=== PATIENT | female | born 1935 | race Two or more races ===

== ENCOUNTER 2021-05-03 17:39 | Emergency (ER) | payer MEDICARE ==
[~2021-05-03] VITALS: Ht 152.4 cm; Wt 68.2 kg
[2021-05-03 18:19] LABS: GLUCOMETER DEV NAME(LOC) ERT.5; GLUCOSE,POINT OF CARE 230 MG/DL (70-110)
[2021-05-03 18:57] LABS: BASOPHILS % (AUTO) 0.3 % (0.0-2.0); EOSINOPHILS % (AUTO) 0.5 % (1.0-6.0); HEMATOCRIT 33.9 % (36-46); HEMOGLOBIN 11.2 g/dL (12.0-16.0); LYMPHOCYTES # (AUTO) 0.9 K/uL (1.0-4.8); LYMPHOCYTES % (AUTO) 10.5 % (22.0-44.0); MEAN CORPUSCULAR HEMOGLOBIN 30.4 pg (26.0-34.0); MEAN CORPUSCULAR HGB CONC 33.1 G/dL (31.0-37.0); MEAN CORPUSCULAR VOLUME 92 fL (80-100); MONOCYTES # (AUTO) 0.5 K/uL (0.1-1.0); MONOCYTES % (AUTO) 5.5 % (2.0-9.0); NEUTROPHILS % (AUTO) 83.2 % (40.0-70.0); PLATELET COUNT (AUTO) 304 K/uL (150-450); RED CELL DISTRIBUTION WIDTH 12.9 % (11.5-14.5)
[2021-05-03 19:11] LABS: CALCIUM, TOTAL 10.2 mg/dL (8.8-10.5); CREATININE 1.73 mg/dL (0.60-1.30); POTASSIUM 4.5 mmol/L (3.5-5.1)
[2021-05-03 19:12] LABS: APPEARANCE,URINE CLOUDY (CLEAR); BILIRUBIN,URINE NEGATIVE (NEGATIVE); GLUCOSE, URINE (UA) NEGATIVE (NEGATIVE); KETONES,URINE NEGATIVE (NEGATIVE); LEUKOCYTE ESTERASE ,URINE MODERATE (NEGATIVE); NITRATE,URINE NEGATIVE (NEGATIVE); OCCULT BLOOD,URINE TRACE (NEGATIVE); PROTEIN,URINE POS 1+ (NEGATIVE); UROBILINOGEN,URINE 0.2 mg/dL (<=1.0)
[2021-05-03] MEDS ORDERED: SODIUM CHLORIDE 0.9% 1,000 ML IV ONE (19:15)
[2021-05-03 19:21] LABS: RBC,URINE 0-2 /HPF (0-2)
[2021-05-03 19:22] LABS: BACTERIA,URINE Few /HPF (None Seen); SQUAMOUS EPITHELIAL CELL,UR Rare /LPF (None Seen)
[2021-05-03 20:10] LABS: COVID AG,FIA SOURCE NASOPHARYNGEAL
[2021-05-03] MEDS ORDERED: CefTRIAXone 1 GM/DEXTROSE 50 ML IV ONE (20:30)
[2021-05-03 23:07] VITALS: BP 176/76
== END 2021-05-03 23:37 | disposition short-term general hospital (02) ==
LOC: EMS 17:43
DX: N17.9 Acute kidney failure, unspecified (principal); N39.0 Urinary tract infection, site not specified; E86.0 Dehydration; E05.00 Thyrotoxicosis with diffuse goiter without thyrotoxic crisis or storm; E78.00 Pure hypercholesterolemia, unspecified; E11.9 Type 2 diabetes mellitus without complications; Z20.822 Contact with and (suspected) exposure to COVID-19
CPT/HCPCS: 36415; 71045; 80048; 81001; 82962; 85025; 87086; 87426; 93005; 96365; 99285; J0696

== ENCOUNTER 2022-12-09 18:18 | Emergency (ER) | payer MEDICARE ==
[~2022-12-09] VITALS: Ht 152.4 cm; Wt 43.2 kg
[2022-12-09] MEDS ORDERED: PANT-31 PO (18:30)
[2022-12-09] MEDS ORDERED: INSU100V SQ (18:30)
[2022-12-09] MEDS ORDERED: AMLO10TA55 PO (18:30)
[2022-12-09] MEDS ORDERED: DOCU-119 PO (18:30)
[2022-12-09] MEDS ORDERED: LOVA20TA73 PO (18:30)
[2022-12-09] MEDS ORDERED: INSLAN SQ (18:30)
[2022-12-09] MEDS ORDERED: FERR-82 PO (18:30)
[2022-12-09] MEDS ORDERED: LEVO50 PO (18:30)
[2022-12-09] MEDS ORDERED: QUET300T2 PO (18:30)
[2022-12-09 20:32] LABS: BASOPHILS % (AUTO) 0.2 % (0.0-2.0); EOSINOPHILS % (AUTO) 0.4 % (1.0-6.0); HEMATOCRIT 27.3 % (36-46); HEMOGLOBIN 9.1 g/dL (12.0-16.0); LYMPHOCYTES # (AUTO) 0.7 K/uL (1.0-4.8); LYMPHOCYTES % (AUTO) 13.8 % (22.0-44.0); MEAN CORPUSCULAR HEMOGLOBIN 31.9 pg (26.0-34.0); MEAN CORPUSCULAR HGB CONC 33.4 G/dL (31.0-37.0); MEAN CORPUSCULAR VOLUME 96 fL (80-100); MONOCYTES # (AUTO) 0.4 K/uL (0.1-1.0); MONOCYTES % (AUTO) 8.9 % (2.0-9.0); NEUTROPHILS # (AUTO) 3.6 K/uL (1.8-7.7); NEUTROPHILS % (AUTO) 76.7 % (40.0-70.0); PLATELET COUNT (AUTO) 212 K/uL (150-450); RED BLOOD CELL COUNT(AUTO) 2.86 MIL/uL (4.00-5.20); RED CELL DISTRIBUTION WIDTH 12.6 % (11.5-14.5)
[2022-12-09 20:42] LABS: CALCIUM, TOTAL 9.4 mg/dL (8.8-10.5); CREATININE 1.72 mg/dL (0.60-1.30); POTASSIUM 5.4 mmol/L (3.5-5.1)
[2022-12-09 20:47] LABS: ALBUMIN 2.9 g/dL (3.4-5.0); BILIRUBIN,TOTAL 0.5 mg/dL (0.1-1.0); TOTAL PROTEIN, SERUM 6.6 g/dL (6.4-8.2)
[2022-12-09 23:55] LABS: COVID AG,FIA SOURCE NASOPHARYNGEAL
[2022-12-10 01:13] VITALS: BP 131/70
== END 2022-12-10 01:19 | disposition home or self-care (01) ==
LOC: EMS 18:24
DX: S20.211A Contusion of right front wall of thorax, initial encounter (principal); E11.9 Type 2 diabetes mellitus without complications; E78.00 Pure hypercholesterolemia, unspecified; Z20.822 Contact with and (suspected) exposure to COVID-19; W06.XXXA Fall from bed, initial encounter; Y93.89 Activity, other specified; Y92.89 Other specified places as the place of occurrence of the external cause; Y99.8 Other external cause status
CPT/HCPCS: 71045; 71100; 80053; 82962; 83690; 83880; 84484; 85025; 93005; 99284

== ENCOUNTER 2023-05-06 17:42 | Emergency (ER) | payer MEDICARE ==
[~2023-05-06] VITALS: Ht 149.9 cm; Wt 45.5 kg
[~2023-05-06 17:42] MED LIST: AMLO10TA55 PO; DOCU-119 PO; FERR-82 PO; INSLAN SQ; INSU100V SQ; LEVO50 PO; LOVA20TA73 PO; PANT-31 PO; QUET300T2 PO
[2023-05-06 17:53] VITALS: TEMP 98.8
[2023-05-06 19:30] VITALS: BP 111/59; PULSE 101; RESP 19
[2023-05-06] MEDS ORDERED: GuaiFENesin [SUGAR-FREE] 200 MG/10 ML SOLUTION UDCUP PO ONE (19:30)
[2023-05-06] MEDS ORDERED: ACETAMINOPHEN 160 MG/5 ML SUSPENSION UDCUP PO ONE (19:30)
[2023-05-06 19:42] LABS: COVID AG,FIA SOURCE NASOPHARYNGEAL
[2023-05-06 19:54] LABS: RAPID GROUP A STREP NEGATIVE (NEGATIVE)
[2023-05-06 20:01] LABS: SARS-COV2 (COVID) ANTIGEN,FIA Negative (Negative)
[2023-05-06 20:02] LABS: INFLUENZA TYPE A NEGATIVE FOR TYPE A (NEGATIVE); INFLUENZA TYPE B NEGATIVE FOR TYPE B (NEGATIVE)
[2023-05-06] MEDS ORDERED: ACET160E39 PO (20:05)
[2023-05-06] MEDS ORDERED: GUAIF10 PO (20:05)
== END 2023-05-06 20:26 | disposition home or self-care (01) ==
LOC: EMS 17:43
DX: J06.9 Acute upper respiratory infection, unspecified (principal); E11.9 Type 2 diabetes mellitus without complications; E78.00 Pure hypercholesterolemia, unspecified; Z20.822 Contact with and (suspected) exposure to COVID-19
CPT/HCPCS: 87430; 87804; 99282; Z7502; Z7610

== ENCOUNTER 2023-06-22 17:50 | Inpatient (IN) | payer MEDICARE ==
[~2023-06-22] VITALS: Ht 154.9 cm; Wt 56.0 kg
[~2023-06-22 17:50] MED LIST changes: +ACET160E39 PO; +GUAIF10 PO
[2023-06-22 20:12] LABS: BASOPHILS % (AUTO) 0.2 % (0.0-2.0); EOSINOPHILS % (AUTO) 0 % (1.0-6.0); HEMATOCRIT 32.9 % (36-46); LYMPHOCYTES # (AUTO) 0.4 K/uL (1.0-4.8); LYMPHOCYTES % (AUTO) 4.6 % (22.0-44.0); MEAN CORPUSCULAR HEMOGLOBIN 32.1 pg (26.0-34.0); MEAN CORPUSCULAR HGB CONC 33.3 G/dL (31.0-37.0); MEAN CORPUSCULAR VOLUME 97 fL (80-100); MONOCYTES # (AUTO) 0.4 K/uL (0.1-1.0); MONOCYTES % (AUTO) 4.9 % (2.0-9.0); NEUTROPHILS # (AUTO) 8.1 K/uL (1.8-7.7); PLATELET COUNT (AUTO) 156 K/uL (150-450); RED BLOOD CELL COUNT(AUTO) 3.41 MIL/uL (4.00-5.20); RED CELL DISTRIBUTION WIDTH 14.5 % (11.5-14.5)
[2023-06-22 20:20] LABS: CREATININE 2.1 mg/dL (0.60-1.30); POTASSIUM 3.7 mmol/L (3.5-5.1)
[2023-06-22 20:26] LABS: ALBUMIN 1.8 g/dL (3.4-5.0); BILIRUBIN,TOTAL 0.8 mg/dL (0.1-1.0); TOTAL PROTEIN, SERUM 5.6 g/dL (6.4-8.2)
[2023-06-22 20:36] LABS: NEUTROPHILS % (AUTO) 90.3 % (40.0-70.0)
[2023-06-22 20:42] LABS: RBC MORPHOLOGY COMMENT NORMAL RBC MORPH
[2023-06-22] MEDS ORDERED: SODIUM CHLORIDE 0.9% 1,000 ML IV ONE ×2 (21:45→22:15)
[2023-06-22] MEDS ORDERED: ONDANSETRON HCL 4 MG/2 ML VIAL IVP PRN (22:15)
[2023-06-22] MEDS ORDERED: DEXTROSE 50%-WATER 25 GM/50 ML SYRINGE IVP PRN (22:15)
[2023-06-22] MEDS ORDERED: ACETAMINOPHEN 325 MG TABLET PO PRN (22:15)
[2023-06-22 22:46] LABS: COVID AG,FIA SOURCE NASAL SWAB
[2023-06-22] MEDS: HEPARIN SODIUM,PORCINE 5,000 UNITS/ML VIAL SQ SCH (22:49)
[2023-06-22 23:06] VITALS: BP 122/63; PULSE 81; RESP 18; TEMP 98.1
[2023-06-22 23:17] LABS: SARS-COV2 (COVID) ANTIGEN,FIA Negative (Negative)
[2023-06-23 05:11] VITALS: BP 116/64; PULSE 104; RESP 20; TEMP 98.5
[2023-06-23 06:36] LABS: GLUCOMETER DEV NAME(LOC) 5S.1B; GLUCOSE,POINT OF CARE 125 MG/DL (70-110)
[2023-06-23 07:11] VITALS: BP 110/65; PULSE 103; RESP 18; TEMP 98.1
[2023-06-23] MEDS: FAMOTIDINE 20 MG TABLET PO SCH (08:55)
[2023-06-23] MEDS: DOCUSATE SODIUM 100 MG CAPSULE PO SCH ×3 (08:55→21:00)
[2023-06-23] MEDS: HEPARIN SODIUM,PORCINE 5,000 UNITS/ML VIAL SQ SCH ×3 (08:55→23:53)
[2023-06-23 09:56] LABS: CALCIUM, TOTAL 7.6 mg/dL (8.8-10.5); CREATININE 1.78 mg/dL (0.60-1.30); POTASSIUM 4.2 mmol/L (3.5-5.1)
[2023-06-23 11:26] VITALS: BP 135/70; PULSE 109; RESP 16; TEMP 98.2
[2023-06-23 12:51] LABS: GLUCOMETER DEV NAME(LOC) 5N.2C; GLUCOSE,POINT OF CARE 109 MG/DL (70-110)
[2023-06-23 15:18] VITALS: BP 136/74; PULSE 110; RESP 16; TEMP 97.6
[2023-06-23 20:22] LABS: GLUCOMETER DEV NAME(LOC) 5N.1C; GLUCOSE,POINT OF CARE 130 MG/DL (70-110)
[2023-06-23 20:30] VITALS: BP 136/76; PULSE 114; RESP 18; TEMP 98.1
[2023-06-23 20:52] LABS: APPEARANCE,URINE CLEAR (CLEAR); BILIRUBIN,URINE NEGATIVE (NEGATIVE); COLOR,URINE YELLOW (YELLOW); GLUCOSE, URINE (UA) NEGATIVE (NEGATIVE); KETONES,URINE NEGATIVE (NEGATIVE); LEUKOCYTE ESTERASE ,URINE TRACE (NEGATIVE); NITRATE,URINE NEGATIVE (NEGATIVE); OCCULT BLOOD,URINE NEGATIVE (NEGATIVE); PH,URINE 5.5 (5.0-8.0); PROTEIN,URINE TRACE mg/dL (NEGATIVE); SPECIFIC GRAVITIY, URINE 1.011 (1.003-1.030); UROBILINOGEN,URINE <=1.0 mg/dL (<=1.0)
[2023-06-23 21:00] LABS: BACTERIA,URINE Many /HPF (None Seen); RBC,URINE 0-2 /HPF (0-2); SQUAMOUS EPITHELIAL CELL,UR Few /LPF (None Seen)
[2023-06-24] VITALS (7 sets, daily range): BP systolic 127–147; BP diastolic 65–95; PULSE 104–116; RESP 16–19; TEMP 97–98.5
[2023-06-24 06:06] LABS: GLUCOMETER DEV NAME(LOC) 5S.1B; GLUCOSE,POINT OF CARE 86 MG/DL (70-110)
[2023-06-24] MEDS: FAMOTIDINE 20 MG TABLET PO SCH (08:36)
[2023-06-24] MEDS: DOCUSATE SODIUM 100 MG CAPSULE PO SCH ×2 (08:36→21:00)
[2023-06-24] MEDS: HEPARIN SODIUM,PORCINE 5,000 UNITS/ML VIAL SQ SCH ×3 (08:36→23:29)
[2023-06-24 12:19] LABS: BASOPHILS % (AUTO) 0.1 % (0.0-2.0); EOSINOPHILS % (AUTO) 0 % (1.0-6.0); HEMATOCRIT 29.7 % (36-46); LYMPHOCYTES # (AUTO) 0.4 K/uL (1.0-4.8); LYMPHOCYTES % (AUTO) 6.6 % (22.0-44.0); MEAN CORPUSCULAR HEMOGLOBIN 32.4 pg (26.0-34.0); MEAN CORPUSCULAR HGB CONC 33.6 G/dL (31.0-37.0); MEAN CORPUSCULAR VOLUME 96 fL (80-100); MONOCYTES # (AUTO) 0.3 K/uL (0.1-1.0); MONOCYTES % (AUTO) 4.7 % (2.0-9.0); NEUTROPHILS # (AUTO) 5.9 K/uL (1.8-7.7); PLATELET COUNT (AUTO) 146 K/uL (150-450); RED BLOOD CELL COUNT(AUTO) 3.09 MIL/uL (4.00-5.20); RED CELL DISTRIBUTION WIDTH 14.5 % (11.5-14.5); WHITE BLOOD COUNT (AUTO) 6.7 K/uL (4.5-11.0)
[2023-06-24 12:20] LABS: NEUTROPHILS % (AUTO) 88.6 % (40.0-70.0)
[2023-06-24 12:27] LABS: CALCIUM, TOTAL 7.9 mg/dL (8.8-10.5); CREATININE 1.71 mg/dL (0.60-1.30)
[2023-06-24 12:36] LABS: ALBUMIN 1.6 g/dL (3.4-5.0); POTASSIUM 3.8 mmol/L (3.5-5.1)
[2023-06-24 14:07] LABS: CREATININE, URINE (mALB) 55.1 mg/dL (Not Estab.)
[2023-06-24 17:36] LABS: GLUCOMETER DEV NAME(LOC) 5N.1C; GLUCOSE,POINT OF CARE 119 MG/DL (70-110)
[2023-06-24 19:01] LABS: GLUCOMETER DEV NAME(LOC) 5N.1C; GLUCOSE,POINT OF CARE 126 MG/DL (70-110)
[2023-06-24 23:42] LABS: GLUCOMETER DEV NAME(LOC) 5N.1C; GLUCOSE,POINT OF CARE 107 MG/DL (70-110)
[2023-06-25 03:48] VITALS: BP 126/52; PULSE 111; RESP 19; TEMP 97.7
[2023-06-25 06:56] LABS: CALCIUM, TOTAL 8.3 mg/dL (8.8-10.5); CREATININE 1.55 mg/dL (0.60-1.30); POTASSIUM 3.9 mmol/L (3.5-5.1)
[2023-06-25 06:57] VITALS: BP 120/77; PULSE 108; RESP 18; TEMP 97.7
[2023-06-25 08:01] LABS: % IRON SATURATION 41.3 % (22-44)
[2023-06-25] MEDS: DOCUSATE SODIUM 100 MG CAPSULE PO SCH ×2 (09:00→20:43)
[2023-06-25] MEDS: HEPARIN SODIUM,PORCINE 5,000 UNITS/ML VIAL SQ SCH (09:03)
[2023-06-25] MEDS: FAMOTIDINE 20 MG TABLET PO SCH (09:04)
[2023-06-25 11:11] LABS: GLUCOMETER DEV NAME(LOC) 5S.1B; GLUCOSE,POINT OF CARE 77 MG/DL (70-110)
[2023-06-25 11:28] VITALS: BP 116/69; PULSE 109; RESP 18; TEMP 98
[2023-06-25 15:41] VITALS: BP 98/72; PULSE 74; RESP 18; TEMP 98
[2023-06-25] MEDS ORDERED: CefTRIAXone SODIUM 1 GM/VIAL IM ONE (16:30)
[2023-06-25] MEDS ORDERED: LIDOCAINE/PF 1% 2 ML VIAL IM ONE (16:30)
[2023-06-25 17:17] LABS: GLUCOMETER DEV NAME(LOC) 5N.1C; GLUCOSE,POINT OF CARE 92 MG/DL (70-110)
[2023-06-25] MEDS ORDERED: SODIUM CHLORIDE 0.9% 250 ML IV ONE (17:21)
[2023-06-25] MEDS: CefTRIAXone 1 GM/DEXTROSE 50 ML IV SCH (17:24)
[2023-06-25 17:25] LABS: BASOPHILS % (AUTO) 0.1 % (0.0-2.0); EOSINOPHILS % (AUTO) 0 % (1.0-6.0); HEMATOCRIT 31.2 % (36-46); HEMOGLOBIN 10.2 g/dL (12.0-16.0); LYMPHOCYTES # (AUTO) 0.5 K/uL (1.0-4.8); LYMPHOCYTES % (AUTO) 7.8 % (22.0-44.0); MEAN CORPUSCULAR HEMOGLOBIN 32.1 pg (26.0-34.0); MEAN CORPUSCULAR HGB CONC 32.8 G/dL (31.0-37.0); MEAN CORPUSCULAR VOLUME 98 fL (80-100); MONOCYTES # (AUTO) 0.3 K/uL (0.1-1.0); MONOCYTES % (AUTO) 4.5 % (2.0-9.0); PLATELET COUNT (AUTO) 176 K/uL (150-450); RED BLOOD CELL COUNT(AUTO) 3.19 MIL/uL (4.00-5.20); RED CELL DISTRIBUTION WIDTH 14.5 % (11.5-14.5); WHITE BLOOD COUNT (AUTO) 6.9 K/uL (4.5-11.0)
[2023-06-25 17:27] LABS: NEUTROPHILS % (AUTO) 87.6 % (40.0-70.0)
[2023-06-25 19:56] LABS: GLUCOMETER DEV NAME(LOC) 5N.2C; GLUCOSE,POINT OF CARE 87 MG/DL (70-110)
[2023-06-25 20:26] VITALS: BP 108/67; PULSE 113; RESP 18; TEMP 97.4
[2023-06-26 00:37] VITALS: BP 106/65; PULSE 108; RESP 16; TEMP 97.8
[2023-06-26 02:06] LABS: GLUCOMETER DEV NAME(LOC) 5N.1C; GLUCOSE,POINT OF CARE 95 MG/DL (70-110)
[2023-06-26 04:39] VITALS: BP 108/73; PULSE 110; RESP 16; TEMP 98.4
[2023-06-26 08:00] VITALS: BP 100/74; PULSE 104; RESP 18; TEMP 98
[2023-06-26] MEDS: DOCUSATE SODIUM 100 MG CAPSULE PO SCH (09:00)
[2023-06-26] MEDS: FAMOTIDINE 20 MG TABLET PO SCH (09:00)
[2023-06-26 11:16] VITALS: BP 119/81; PULSE 116; RESP 19; TEMP 98
[2023-06-26 13:07] LABS: TOTAL PROTEIN URINE 27.5 mg/dL (Not Estab.)
[2023-06-26 15:33] VITALS: BP 105/70; PULSE 121; RESP 19; TEMP 97.8
[2023-06-26] MEDS: INSULIN LISPRO 100 UNITS/ML SQ PRN (17:16)
[2023-06-26] MEDS: CefTRIAXone 1 GM/DEXTROSE 50 ML IV SCH (17:17)
[2023-06-26 17:21] LABS: GLUCOMETER DEV NAME(LOC) 5N.1C; GLUCOSE,POINT OF CARE 96 MG/DL (70-110)
[2023-06-26] MEDS: AZITHROMYCIN 500 MG/NS 250 ML IV SCH (18:07)
[2023-06-26 19:46] LABS: GLUCOMETER DEV NAME(LOC) 5N.2C; GLUCOSE,POINT OF CARE 153 MG/DL (70-110)
[2023-06-26 20:00] VITALS: BP 102/66; PULSE 115; RESP 20; TEMP 97
[2023-06-26 21:31] LABS: GLUCOMETER DEV NAME(LOC) 5S.1B; GLUCOSE,POINT OF CARE 141 MG/DL (70-110)
[2023-06-26 21:32] LABS: GLUCOMETER DEV NAME(LOC) 5N.1C; GLUCOSE,POINT OF CARE 112 MG/DL (70-110)
[2023-06-27] VITALS: BP 136/68; PULSE 104; RESP 20; TEMP 97.7
[2023-06-27 04:00] VITALS: BP 105/65; PULSE 108; RESP 20; TEMP 97.9
[2023-06-27 05:25] VITALS: BP 105/65; PULSE 108; RESP 20; TEMP 97.9
[2023-06-27 06:44] LABS: BASOPHILS % (AUTO) 0.1 % (0.0-2.0); EOSINOPHILS % (AUTO) 0 % (1.0-6.0); HEMATOCRIT 31.6 % (36-46); HEMOGLOBIN 10.2 g/dL (12.0-16.0); LYMPHOCYTES # (AUTO) 0.6 K/uL (1.0-4.8); LYMPHOCYTES % (AUTO) 5.4 % (22.0-44.0); MEAN CORPUSCULAR HEMOGLOBIN 32.7 pg (26.0-34.0); MEAN CORPUSCULAR HGB CONC 32.3 G/dL (31.0-37.0); MEAN CORPUSCULAR VOLUME 101 fL (80-100); MONOCYTES # (AUTO) 0.6 K/uL (0.1-1.0); MONOCYTES % (AUTO) 5.4 % (2.0-9.0); NEUTROPHILS # (AUTO) 9.2 K/uL (1.8-7.7); PLATELET COUNT (AUTO) 156 K/uL (150-450); RED BLOOD CELL COUNT(AUTO) 3.12 MIL/uL (4.00-5.20); RED CELL DISTRIBUTION WIDTH 14.9 % (11.5-14.5); WHITE BLOOD COUNT (AUTO) 10.3 K/uL (4.5-11.0)
[2023-06-27 06:50] LABS: NEUTROPHILS % (AUTO) 89.1 % (40.0-70.0)
[2023-06-27 07:20] LABS: GLUCOMETER DEV NAME(LOC) 5S.1B; GLUCOSE,POINT OF CARE 106 MG/DL (70-110)
[2023-06-27 07:30] VITALS: BP 111/58; PULSE 118; RESP 16; TEMP 97.9
[2023-06-27 07:33] LABS: ALBUMIN 1.6 g/dL (3.4-5.0); BILIRUBIN,TOTAL 0.7 mg/dL (0.1-1.0); CALCIUM, TOTAL 9.1 mg/dL (8.8-10.5); CREATININE 1.87 mg/dL (0.60-1.30); FREE T4 (FREE THYROXINE) 0.52 ng/dL (0.76-1.46); POTASSIUM 3.8 mmol/L (3.5-5.1); THYROID STIMULATING HORMONE 4.19 uIU/mL (0.36-3.74); TOTAL PROTEIN, SERUM 5.7 g/dL (6.4-8.2)
[2023-06-27] MEDS: FAMOTIDINE 20 MG TABLET PO SCH (08:07)
[2023-06-27 11:42] VITALS: BP 98/59; PULSE 108; RESP 16; TEMP 98
[2023-06-27] MEDS: INSULIN LISPRO 100 UNITS/ML SQ PRN (12:53)
[2023-06-27] MEDS ORDERED: LEVO-72 PO (14:40)
[2023-06-27 15:31] LABS: GLUCOMETER DEV NAME(LOC) 5N.2C; GLUCOSE,POINT OF CARE 160 MG/DL (70-110)
[2023-06-27] MEDS: CefTRIAXone 1 GM/DEXTROSE 50 ML IV SCH (17:00)
[2023-06-27] MEDS: AZITHROMYCIN 500 MG/NS 250 ML IV SCH (18:00)
== END 2023-06-27 19:30 | disposition hospice, home (50) | DRG 640 ==
LOC: EMS 17:50 → 5S 22:00
PROVIDERS: ADMIT Internal Medicine; ATTEND Internal Medicine
DX: E86.0 Dehydration (principal); E43 Unspecified severe protein-calorie malnutrition; N17.0 Acute kidney failure with tubular necrosis; N39.0 Urinary tract infection, site not specified; E87.1 Hypo-osmolality and hyponatremia; E87.20 Acidosis, unspecified; Z66 Do not resuscitate; F03.90 Unspecified dementia, unspecified severity, without behavioral disturbance, psychotic disturbance, mood disturbance, and anxiety; E11.22 Type 2 diabetes mellitus with diabetic chronic kidney disease; N18.9 Chronic kidney disease, unspecified; Z20.822 Contact with and (suspected) exposure to COVID-19; R62.7 Adult failure to thrive; R41.89 Other symptoms and signs involving cognitive functions and awareness; E11.21 Type 2 diabetes mellitus with diabetic nephropathy; E78.00 Pure hypercholesterolemia, unspecified; I89.0 Lymphedema, not elsewhere classified; E86.1 Hypovolemia; E11.649 Type 2 diabetes mellitus with hypoglycemia without coma; D63.1 Anemia in chronic kidney disease; Z68.23 Body mass index [BMI] 23.0-23.9, adult; Z51.5 Encounter for palliative care; Z79.4 Long term (current) use of insulin; Z79.899 Other long term (current) drug therapy
CPT/HCPCS: 71045; 80048; 80053; 81001; 82043; 82570; 82607; 82728; 82962; 83540; 83550; 83880; 84156; 84166; 84300; 84439; 84443; 85025; 87086; 87186; 93005; 93306; 97112; 97163; 97166; 97530; 99285; G0378; J0456; J0696; J1644; J3490; J7050; 36415-L1; 36415-TC